=== PATIENT | female | born 1990 | race Caucasian/White ===

== ENCOUNTER 2018-03-20 17:52 | Emergency (ER) | payer SELFPAY ==
[~2018-03-20] VITALS: Ht 152.4 cm; Wt 54.4 kg
[~2018-03-20 17:52] MED LIST: CEPH-264 PO; HYDR-971 PO
[2018-03-20 18:01] VITALS: BP 111/66
--- NOTE | 2018-03-20 19:01 | PHYS DOC ---
Past Medical History Past Medical History: No Pertinent History Past Surgical History: Alcohol Use: Occasionally Drug Use: None Adult General Chief Complaint Chief Complaint: SORE THROAT HPI HPI Patient is a 27 year old female who presents to the emergency Department today with complaints of a sore throat for the last 3 days. Tonight she states she was sent home from work after a coworker noticed a swollen lymph node on the right side of her neck. Patient denies any fever, cough, nasal congestion, or rash. Patient states that she has had strep throat in the past and that her throat feels similar to that. She denies any ear pain, nausea, or vomiting. Review of Systems Review of Systems Constitutional: Denies fever or chills [] Eyes: Denies change in visual acuity, redness, or eye pain [] HENT: Denies ear pain, nasal congestion, or runny nose; Reports sore throat [] Respiratory: Denies cough or shortness of breath [] GI: Denies abdominal pain, nausea, or vomiting Musculoskeletal: Denies back pain or joint pain [] Integument: Denies rash or skin lesions [] Neurologic: Denies headache, focal weakness or sensory changes [] All other systems were reviewed and found to be within normal limits, except as documented in this note. Allergies Allergies Allergies Coded Allergies Type Severity Reaction Last Updated Verified latex Allergy Severe Hives 09/02/13 Yes Physical Exam Physical Exam Constitutional: Well developed, well nourished, no acute distress, non-toxic appearance. [] HENT: Normocephalic, atraumatic, bilateral external ears normal, bilateral TMs normal, 2+ swelling of bilateral tonsils, mild erythema of posterior pharynx, oropharynx moist, no oral exudates, nose normal. [] Eyes: PERRLA, conjunctiva normal, no discharge. [] Neck: Normal range of motion, no tenderness, no stridor, mild swollen submandibular lymph node on the right . [] Cardiovascular:Heart rate regular rhythm, no murmur [] Lungs & Thorax: Bilateral breath sounds clear to auscultation [] Skin: Warm, dry, no erythema, no rash. [] Extremities: no cyanosis, no clubbing, ROM intact, no edema. [] Neurologic: Alert and oriented X 3, normal motor function, normal sensory function, no focal deficits noted. [] Psychologic: Affect normal, judgement normal, mood normal. [] Current Patient Data Vital Signs Vital Signs Date Time Temp Pulse Resp B/P (MAP) Pulse Ox O2 Delivery O2 Flow Rate FiO2 03/20/18 18:01 98.3 62 20 111/66 (81) 100 Room Air 98.3 EKG EKG [] Radiology/Procedures Radiology/Procedures Rapid strep test was negative[] Course & Med Decision Making Course & Med Decision Making Pertinent Labs and Imaging studies reviewed. (See chart for details) Diagnosis: Pharyngitis Patient was instructed to take Tylenol or ibuprofen as needed for pain. Recommend salt water gargles as needed for relief of discomfort. Follow-up with primary care doctor if symptoms persist next week. Return to the ER for symptoms worsen. Patient verbalized an understanding of home care, medications, follow-up, and return to ED instructions and was in agreement with the plan of care. [] Dragon Disclaimer Dragon Disclaimer This electronic medical record was generated, in whole or in part, using a voice recognition dictation system. Departure Departure Impression: Primary Impression: Pharyngitis, acute Disposition: 01 HOME, SELF-CARE Condition: STABLE Referrals: KIERRA FLETCHER MD (PCP) Patient Instructions: Viral Pharyngitis Additional Instructions: Salt water gargles as needed for comfort. Tylenol or ibuprofen as needed for pain/fever. Follow up with PCP next week if symptoms persist, return to ER if symptoms worsen. Problem Qualifiers Primary Impression: Pharyngitis, acute Pharyngitis/tonsillitis etiology: unspecified etiology Qualified Codes: J02.9 - Acute pharyngitis, unspecified JASWINDER GOODEN [employer] Mar 20, 2018 19:01
== END 2018-03-20 19:10 | disposition home or self-care (01) ==
LOC: ER 17:52
DX: J02.9 Acute pharyngitis, unspecified (principal); Z98.890 Other specified postprocedural states; Z91.040 Latex allergy status
CPT/HCPCS: 87070; 87880; 99283

== ENCOUNTER 2018-04-17 16:43 | Emergency (ER) | payer SELFPAY ==
[~2018-04-17] VITALS: Ht 152.4 cm; Wt 54.4 kg
[2018-04-17 17:00] VITALS: BP 109/61
[2018-04-17] MEDS ORDERED: TOBR5DRO6 EACHEYE (17:24)
--- NOTE | 2018-04-17 17:24 | PHYS DOC ---
Past Medical History Past Medical History: No Pertinent History Past Surgical History: Alcohol Use: Occasionally Drug Use: None Adult General Chief Complaint Chief Complaint: EYE PROBLEMS HPI HPI Patient is a 27 year old female who presents with bilateral eye redness with yellow/greenish drainage for two days. Denies any vision loss. Review of Systems Review of Systems Constitutional: Denies fever or chills [] Eyes: Reports bilateral eye redness with yellow/greenish drainage. Denies change in visual acuity, eye pain [] Musculoskeletal: Denies back pain or joint pain [] Integument: Denies rash or skin lesions [] Neurologic: Denies headache, focal weakness or sensory changes [] All other systems were reviewed and found to be within normal limits, except as documented in this note. Allergies Allergies Allergies Coded Allergies Type Severity Reaction Last Updated Verified latex Allergy Severe Hives 09/02/13 Yes Physical Exam Physical Exam Constitutional: Well developed, well nourished, no acute distress, non-toxic appearance. [] HENT: Normocephalic, atraumatic, bilateral external ears normal, oropharynx moist, no oral exudates, nose normal. [] Eyes: PERRLA, EOMI, bilateral conjunctiva are mildly injected with yellow/ greenish drainage. Skin: Warm, dry, no erythema, no rash. [] Back: No tenderness, no CVA tenderness. [] Extremities: No tenderness, no cyanosis, no clubbing, ROM intact, no edema. [] Neurologic: Alert and oriented X 3, normal motor function, normal sensory function, no focal deficits noted. [] Psychologic: Affect normal, judgement normal, mood normal. [] Current Patient Data Vital Signs Vital Signs Date Time Temp Pulse Resp B/P (MAP) Pulse Ox O2 Delivery O2 Flow Rate FiO2 04/17/18 17:00 98.8 80 16 109/61 (77) 100 Room Air 98.8 EKG EKG [] Radiology/Procedures Radiology/Procedures [] Course & Med Decision Making Course & Med Decision Making Pertinent Labs and Imaging studies reviewed. (See chart for details) Patient has pink eye bilaterally. D/c with Tobramycin. Hand hygiene emphasized. F/u with eye doctor as needed. Staff Physician Addendum: I was working in the ER during the course of this patient's visit. I was available for consultation as needed, but I was not directly involved in the care of this patient. Dragon Disclaimer Dragon Disclaimer This electronic medical record was generated, in whole or in part, using a voice recognition dictation system. Departure Departure Impression: Primary Impression: Bacterial conjunctivitis of both eyes Disposition: HOME, SELF-CARE Condition: STABLE Referrals: KIERRA FLETCHER MD (PCP) follow up in 1-2 weeks Patient Instructions: Bacterial Conjunctivitis Additional Instructions: You have pink eye. Maintain good hand hygiene. Do not use make up or contacts until infection has cleared up. When the infection has cleared up please get new make up kit and contacts if you use contacts. Scripts Tobramycin (TOBRAMYCIN) 5 Ml Drops 1 DROP EACHEYE Q4HRS W/A, #5 ML Prov: DEWEY PARTIDA APRN 04/17/18 DEWEY PARTIDA APRN Apr 17, 2018 17:24 KELSEA RUSSELL MD Apr 17, 2018 17:46
== END 2018-04-17 17:29 | disposition home or self-care (01) ==
LOC: ER 16:43
DX: H10.89 Other conjunctivitis (principal); B99.8 Other infectious disease; Z98.890 Other specified postprocedural states; Z91.040 Latex allergy status
CPT/HCPCS: 99283

== ENCOUNTER 2018-11-29 15:51 | Emergency (ER) | payer SELFPAY ==
[~2018-11-29] VITALS: Ht 152.4 cm; Wt 51.7 kg
[~2018-11-29 15:51] MED LIST changes: +HYDR-3164 PO; -HYDR-971 PO; +TOBR5DRO6 EACHEYE
[2018-11-29 16:05] VITALS: BP 112/58
[2018-11-29] MEDS ORDERED: HYDROcodone/APAP 5/325MG 1 TAB TABLET PO ONE (16:30)
[2018-11-29] MEDS ORDERED: LIDOCAINE 2% VISCOUS 15 ML SOLUTION. SWSW ONE (16:30)
[2018-11-29] MEDS ORDERED: AMOX1TAB61 PO (16:37)
--- NOTE | 2018-11-29 16:37 | PHYS DOC ---
Past Medical History Past Medical History: No Pertinent History Past Surgical History: Smoking: Cigarettes, Less than 1pk/day Alcohol Use: Occasionally Drug Use: Marijuana, Methamphetamine, Other Adult General Chief Complaint Chief Complaint: DENTAL PROBLEM HPI HPI Patient is a 27 year old female presents with dental pain has been ongoing for 2 weeks. The patient states that she will get a dental appointment tomorrow. Rates her pain as 10 out of 10 and throbbing but states that she took aleve an hour and a half ago but that is not helped her pain. Review of Systems Review of Systems Constitutional: Denies fever or chills [] Eyes: Denies change in visual acuity, redness, or eye pain [] HENT: Denies nasal congestion or sore throat. Reports dental pain. Respiratory: Denies cough or shortness of breath [] Cardiovascular: No additional information not addressed in HPI [] GI: Denies abdominal pain, nausea, vomiting, bloody stools or diarrhea [] : Denies dysuria or hematuria [] Musculoskeletal: Denies back pain or joint pain [] Integument: Denies rash or skin lesions [] Neurologic: Denies headache, focal weakness or sensory changes [] Endocrine: Denies polyuria or polydipsia [] Complete systems were reviewed and found to be within normal limits, except as documented in this note. Current Medications Current Medications Current Medications Medications (Trade) Dose Ordered Sig/Gómez Start Time Stop Time Status Last Admin Dose Admin Acetaminophen/ Hydrocodone Bitart (Lortab 5/325) 1 tab 1X ONCE 11/29/18 16:30 11/29/18 16:31 UNV Lidocaine HCl (Viscous Lidocaine) 15 ml 1X ONCE 11/29/18 16:30 11/29/18 16:31 UNV Allergies Allergies Allergies Coded Allergies Type Severity Reaction Last Updated Verified latex Allergy Severe Hives 09/02/13 Yes Physical Exam Physical Exam Constitutional: Well developed, well nourished, no acute distress, non-toxic appearance. [] HENT: Normocephalic, atraumatic, bilateral external ears normal, oropharynx moist, no oral exudates, nose normal, Cavity and Dental Abscess at Tooth 17. Eyes: PERRLA, EOMI, conjunctiva normal, no discharge. [] Neck: Normal range of motion, no tenderness, supple, no stridor. [] Cardiovascular:Heart rate regular rhythm, no murmur [] Lungs & Thorax: Bilateral breath sounds clear to auscultation [] Abdomen: Bowel sounds normal, soft, no tenderness, no masses, no pulsatile masses. [] Skin: Warm, dry, no erythema, no rash. [] Back: No tenderness, no CVA tenderness. [] Extremities: No tenderness, no cyanosis, no clubbing, ROM intact, no edema. [] Neurologic: Alert and oriented X 3, normal motor function, normal sensory function, no focal deficits noted. [] Psychologic: Affect normal, judgement normal, mood normal. [] EKG EKG [] Radiology/Procedures Radiology/Procedures [] Course & Med Decision Making Course & Med Decision Making Pertinent Labs and Imaging studies reviewed. (See chart for details) Will order [place] for pain control and order a viscious lidocaine on cottonballs to hold against tooth. Will also prescribe antibiotic to go home on. Dragon Disclaimer Dragon Disclaimer This electronic medical record was generated, in whole or in part, using a voice recognition dictation system. Departure Departure Impression: Primary Impression: Dental abscess Disposition: 01 HOME, SELF-CARE Condition: STABLE Referrals: KIERRA FLETCHER MD (PCP) Patient Instructions: Dental Abscess Additional Instructions: Thank you for visiting [facility]. We appreciate you trusting us with your care. If any additional problems come up don't hesitate to return to visit us. Please follow up with your primary care provider so they can plan additional care if needed and know about the problem that you had. If symptoms worsen come back to the Emergency Department. Any concerning symptoms that start such as chest pain, shortness of Air, weakness or numbness on one side of the body, running high fevers or any other concerning symptoms return to the ER. Please fill your medications at any pharmacy and follow the prescription instructions. You have been prescribed an antibiotic today to help fight your infection. Please take all of the antibiotic as directed. If after 48 hours the infection is not improving, please return for more care. If the infection worsens, return to ER for additional care. Scripts Amoxicillin/Potassium Clav (AUGMENTIN [id number] TABLET) 1 Each Tablet 1 TAB PO BID for 7 Days, #14 TAB Prov: SORIN NGO APRN 11/29/18 SORIN NGO APRN Nov 29, 2018 16:37
== END 2018-11-29 16:49 | disposition home or self-care (01) ==
LOC: ER 15:51
DX: K04.7 Periapical abscess without sinus (principal); F17.210 Nicotine dependence, cigarettes, uncomplicated; Z98.890 Other specified postprocedural states; Z91.040 Latex allergy status
CPT/HCPCS: 99283